=== PATIENT | female | born 1955 | race Caucasian/White ===

== ENCOUNTER 2023-05-26 11:32 | Inpatient (IN) ==
[2023-05-26] MEDS ORDERED: Labetalol IV 5 MG/ML 20 ml VIAL ONE (11:43)
[2023-05-26 11:50] LABS: ABS Basophils 0.1 10^3/uL (0.0-0.1); ABS Eosinophils 0.1 10^3/uL (0.0-0.5); ABS Lymphocytes 1.7 10^3/uL (1.0-4.8); ABS Monocytes 0.3 10^3/uL (0.0-0.9); ABS Neutrophils 5.3 10^3/uL (1.5-7.6); ABS Nucleated RBC 0.01 10^3/ul; Eosinophil % 1.2 %; Hematocrit 45.5 % (35-45); Hemoglobin 15.5 g/dL (11.5-14.3); Lymphocyte % 22.5 %; Mean Corpuscular Hemoglobin 33.5 pg (27-33); Mean Corpuscular Hgb Conc 34.1 g/dL (31-36); Mean Corpuscular Volume 98.3 fL (80-97); Mean Platelet Volume 7.9 fL (7.5-11.2); Nucleated Red Blood Cells % 0.1 %/100WBC (0.0-0.8); Platelet Count 306 10^3/uL (150-450); Red Blood Count 4.63 10^6/uL (3.63-4.92); Red Cell Distribution Width 14.9 % (12-17); White Blood Count 7.6 10^3/uL (3.8-11.8)
[2023-05-26] MEDS: Labetalol IV 5 MG/ML 20 ml VIAL IV PUSH ONE (11:59)
[2023-05-26] MEDS ORDERED: TENECTEPLASE 50 MG VIAL KIT 5 MG/ML (reconstituted) IV ONE (12:02)
[2023-05-26 12:09] LABS: Activated Partial Thrombo Time 26.8 seconds (26.0-38.0); INR 0.86 (0.83-1.13)
[2023-05-26] MEDS: TENECTEPLASE 50 MG VIAL KIT 5 MG/ML (reconstituted) IV ONE (12:12)
[2023-05-26 13:50] LABS: ALT 34 U/L (7-52); Albumin 3.9 g/dL (3.2-5.2); Albumin/Globulin Ratio 1.6 (1-3); Alcohol, S 23 mg/dL (<13); Alkaline Phosphatase 69 U/L (35-149); Blood Urea Nitrogen 11 mg/dL (6-24); CO2 Carbon Dioxide 20 mmol/L (22-32); Chloride 108 mmol/L (101-111); Cholesterol 217 mg/dL; Creatinine, Serum 0.54 mg/dL (0.51-0.95); Globulin 2.5 g/dL (2-4); Glucose 85 mg/dL (70-100); HDL Cholesterol 102.7 mg/dL; LDL Cholesterol 83 mg/dL; Sodium 139 mmol/L (135-145); Total Bilirubin 0.7 mg/dL (0.2-1.0); Total Protein 6.4 g/dL (6.4-8.9); Triglycerides 157 mg/dL
[2023-05-26 14:13] LABS: Anion Gap 11 mmol/L (2-16)
[2023-05-26] MEDS ORDERED: Labetalol IV 5 MG/ML 20 ml VIAL IV PUSH PRN (14:40)
[2023-05-26] MEDS: Thiamine 100 MG/ML 2 ml VIAL (200 mg) IM ONE (17:09)
[2023-05-26] MEDS: niCARdipine 0.1MG/ML IVPREMIX 20 MG/200 ML BAG IV SCH (17:09)
[2023-05-26 18:41] LABS: Vitamin B12 377 pg/mL (180-914)
[2023-05-26 19:23] LABS: High Sensitivity Troponin 1 Hr 4 pg/mL (<15)
[2023-05-27 06:53] LABS: Anion Gap 10 mmol/L (2-16); Blood Urea Nitrogen 8 mg/dL (6-24); CO2 Carbon Dioxide 26 mmol/L (22-32); Calcium 8.4 mg/dL (8.6-10.3); Chloride 107 mmol/L (101-111); Glucose 92 mg/dL (70-100); Sodium 143 mmol/L (135-145); eGFR CKD-EPI 100.8 (>60)
[2023-05-27] MEDS: Multivitamins/Minerals TAB PO SCH (08:09)
[2023-05-27] MEDS: Nicotine Lozenge mini 2 MG LOZNG.MINI MT PRN (08:10)
[2023-05-27 12:18] VITALS: BP 156/93
[2023-05-27 13:36] LABS: Hematocrit 44.2 % (35-45); Hemoglobin 15.2 g/dL (11.5-14.3); Mean Corpuscular Hemoglobin 33.5 pg (27-33); Mean Corpuscular Hgb Conc 34.3 g/dL (31-36); Mean Corpuscular Volume 97.5 fL (80-97); Mean Platelet Volume 8.2 fL (7.5-11.2); Platelet Count 276 10^3/uL (150-450); Red Blood Count 4.53 10^6/uL (3.63-4.92); Red Cell Distribution Width 14.4 % (12-17); White Blood Count 8.4 10^3/uL (3.8-11.8)
[2023-05-28] MEDS ORDERED: Aspirin EC 81 mg TAB.EC (enteric coated) PO SCH (09:00)
== END 2023-05-27 15:13 | disposition home or self-care (01) | DRG 62 ==
LOC: ED 11:32 → EDHOLD 13:06 → ICU 13:40
PROVIDERS: ADMIT Surgery Surgical Critical Care; ATTEND Surgery Surgical Critical Care